=== PATIENT | male | born 1975 | race Caucasian/White ===

== ENCOUNTER → 2017-03-16 12:29 | Outpatient (CLI) | payer MEDICARE ==
[~2017-03-16 12:29] MED LIST: ADDERALL 20 MG20 M1 PO; AMBIEN10 MG PO; AMITRIPTYLINE H50 MG PO; BUPROPION XL300 MG PO; CHANTIX 1 MG TAB1 MG PO; ENDOCET 10-3251 TAB PO; HYDROCODONE-APA1 TAB PO; PARAFON FORTE500 MG PO; PROTONIX40 MG PO; RELAFEN500 MG PO; XANAX2 MG PO; ZESTRIL40 MG PO
[2017-04-02 12:22] VITALS: BMI 31.7
== END | disposition home or self-care (01) ==
LOC: D.RAD 12:29
DX: M25.512 Pain in left shoulder (principal)

== ENCOUNTER 2017-04-02 10:22 | Day surgery (SDC) | payer MEDICARE ==
[~2017-04-02] VITALS: Ht 185.4 cm; Wt 108.9 kg
[2017-04-02 11:58] LABS: HEMATOCRIT 46.7 % (42.0-54.0); MCH 30.2 pg (26.0-34.0); MCHC 34.3 g/dL (31.0-37.0); MCV 88.1 fL (80.0-100.0); MEAN PLATELET VOLUME 9.5 fL (7.4-10.4); RBC 5.3 10x6/uL (4.20-6.10); RDW 13.5 % (11.5-14.5); WBC 8.2 10x3/uL (4.8-10.8)
[2017-04-02 12:04] LABS: CALC OSMOLALITY 278 mosm/kg (275-300); CALCIUM 9.4 mg/dL (8.5-10.1); CARBON DIOXIDE 26.6 mmol/L (21.0-32.0); CHLORIDE - SERUM 104 mmol/L (98-107); CREATININE - SERUM 0.9 mg/dL (0.6-1.3); GLUCOSE 112 mg/dL (74-106); POTASSIUM - SERUM 4.2 mmol/L (3.5-5.1); SODIUM 140 mmol/L (136-145); UREA NITROGEN 10 mg/dL (7-18); eGFR NON AFRICAN AMERICAN > 90 mL/min (90-120)
[2017-04-02] MEDS ORDERED: BUPROPION XL300 MG PO (12:12)
[2017-04-02] MEDS ORDERED: AMBIEN10 MG PO (12:12)
[2017-04-02] MEDS ORDERED: PARAFON FORTE500 MG PO (12:12)
[2017-04-02] MEDS ORDERED: CHANTIX 1 MG TAB1 MG PO (12:12)
[2017-04-02] MEDS ORDERED: AMITRIPTYLINE H50 MG PO (12:13)
[2017-04-02] MEDS ORDERED: XANAX2 MG PO (12:13)
[2017-04-02] MEDS ORDERED: ENDOCET 10-3251 TAB PO (12:13)
[2017-04-02] MEDS ORDERED: ADDERALL 20 MG20 M1 PO (12:14)
[2017-04-02] MEDS ORDERED: ZESTRIL40 MG PO (12:14)
[2017-04-02] MEDS ORDERED: RELAFEN500 MG PO (12:14)
[2017-04-02] MEDS ORDERED: PROTONIX40 MG PO (12:15)
[2017-04-02 12:22] VITALS: BP 103/85; Ht 185.4 cm; Wt 108.9 kg
[2017-04-02] MEDS ORDERED: HYDROCODONE-APA1 TAB PO (14:07)
--- NOTE | 2017-04-02 16:43 | NUR ---
1515 IV DC WITH CATHER TIP INTACT
--- NOTE | 2017-04-05 08:42 | OP ---
PATIENT NAME: GLORIA LOERA MEDICAL RECORD: [id number] :71 LOCATION:[facility] ADMISSION DATE: SURGEON: BOBBI MASTERS MD DATE OF OPERATION: 04/02/2017 PREOPERATIVE DIAGNOSIS: SLAP lesion of the left shoulder with recurrent impingement syndrome. POSTOPERATIVE DIAGNOSIS: SLAP lesion of the left shoulder with recurrent impingement syndrome with rotator cuff tear. PROCEDURES: 1. Arthroscopic SLAP repair. 2. Arthroscopic rotator cuff repair. 3. Arthroscopic subacromial decompression with acromioplasty. 4. Arthroscopic distal clavicle excision. SURGEON: Bobbi Masters MD ANESTHESIA: General. INTRAOPERATIVE COMPLICATIONS: None. SUMMARY OF PATHOLOGIC FINDINGS: Consistent with the preoperative MRI, the patient had a labral tear from 10 o'clock to 2 o'clock position that had from the superior aspect of the glenoid. Furthermore, the patient had a downward sloping acromion left after the previous surgery causing some impingement and rotator cuff tearing on the anterior aspect of the supraspinatus tendinous footprint as well as downward osteophytes from the acromioclavicular joint. OPERATIVE SUMMARY IN DETAIL: After obtaining the appropriate preoperative orthopedic surgery consents as well as anesthetic consultation, evaluation and clearance, the patient was brought to the operating room and placed on table in supine position. After general laryngeal mask was administered, the patient was placed in a right lateral decubitus position. All pressure points were well padded to include down leg peroneal pad as well as axillary roll. The patient was held firmly to the operating table using the vacuum pack suction system. Left upper extremity and shoulder were prepped and draped in a routine sterile fashion. The arm was held in the Arth[employer] traction boom at 30 degrees of forward flexion, 30 degrees of abduction with 10 pounds of traction laterally. Arthroscopy was established in the glenohumeral joint from a posterior portal. Anterior portal was established in the anterior safe interval. Diagnostic arthroscopy did reveal the patient to have the labral tear. Accessory tertiary portal of [place] was created and then the superior aspect of the glenoid was decorticated as was the anterior part for reapproximation of the labrum and 2 labral anchors were used, one at the 1 o'clock position and one at the 10 o'clock position, 2.9 labral anchors were used with labral tape. The lasso shuttle relay was used to pass the labral tape and good anchorage was achieved at these 2 positions. At this point, attention was turned to the small rotator cuff tear. A small transrotator cuff portal was created to debride the rotator cuff tearing on the articular side. Attention was then turned to the subacromial space. While in the subacromial space, all residual soft tissue was taken from the undersurface of the acromion using a polyp surface tissue ablation system along with releasing the coracoacromial ligament. A 5-0 barrel OPERATIVE REPORT [id number] GLORIA LOERA bur was used to perform acromioplasty at the level of acromioclavicular joint and then a separate arthroscopic portal, distal clavicle was excised for 1 cm. Lastly, attention was returned to the rotator cuff tear, #2 FiberTape from [employer] was then placed in an inverted mattress style fashion, and anchored laterally with a 4.75 SwiveLock from [employer]. Having completed this, arthroscopy portals were closed in routine interrupted fashion. Sterile dressings were applied. The patient was awakened and taken to the recovery room in stable condition. All final needle and sponge counts were correct. TRANSINT:[id number] Voice Confirmation ID: [id number] DOCUMENT ID: [id number] SONAM ARRIETA, BOBBI ONTIVEROS at 0842 CC: [id number] DICTATION DATE: 04/02/17 1414 CLIENT PARTNER: 04/02/17 1651 [facility] 04/02/17 [facility] [address] [place] [address]
== END 2017-04-02 16:00 | disposition home or self-care (01) ==
LOC: D.OPS 10:22 → D.PAN 14:45 → D.OPS 16:00
PROVIDERS: Anesthesiology
DX: S43.432A Superior glenoid labrum lesion of left shoulder, initial encounter (principal); M75.42 Impingement syndrome of left shoulder; M75.112 Incomplete rotator cuff tear or rupture of left shoulder, not specified as traumatic; Z01.812 Encounter for preprocedural laboratory examination

== ENCOUNTER → 2017-07-30 13:45 | Outpatient (CLI) | payer MEDICARE ==
[2017-04-02 12:22] VITALS: BMI 31.7
[~2017-07-30 13:45] MED LIST changes: -BUPROPION XL300 MG PO; +COZAAR50 MG PO; +NEURONTIN 300300 MG PO; +PHENERGAN25 M1 PO; +ROBAXIN500 MG PO; +VITAMIN D250000 UNIT PO; +WELLBUTRIN XL150 M1 PO
== END | disposition home or self-care (01) ==
LOC: D.RAD 13:45
DX: M25.511 Pain in right shoulder (principal)

== ENCOUNTER 2017-08-27 06:05 | Day surgery (SDC) | payer MEDICARE ==
[2017-08-26 12:51] LABS: HEMATOCRIT 40.1 % (42.0-54.0); HEMOGLOBIN 13.5 g/dL (13.5-17.5); MCH 30.8 pg (26.0-34.0); MCHC 33.7 g/dL (31.0-37.0); MCV 91.3 fL (80.0-100.0); MEAN PLATELET VOLUME 9.1 fL (7.4-10.4); RBC 4.39 10x6/uL (4.20-6.10); RDW 13.4 % (11.5-14.5); WBC 7.3 10x3/uL (4.8-10.8)
[~2017-08-27] VITALS: Ht 185.4 cm; Wt 117.9 kg
--- NOTE | ~2017-08-27 | OP ---
PATIENT NAME: GLORIA LOERA MEDICAL RECORD: [id number] :71 LOCATION:[facility] ADMISSION DATE: SURGEON: SONAM ARRIETA, BOBBI ONTIVEROS DATE OF OPERATION: 08/27/2017 PREOPERATIVE DIAGNOSES: SLAP lesion of the right shoulder with impingement syndrome and acromioclavicular arthritis. POSTOPERATIVE DIAGNOSES: SLAP lesion of the right shoulder with impingement syndrome and acromioclavicular arthritis. PROCEDURE: 1. Arthroscopic SLAP repair of the right shoulder that is repair of glenoid labral detachment. 2. Arthroscopic distal clavicle excision done through separate incision -- 1 cm under direct arthroscopic visualization. 3. Arthroscopic subacromial decompression with acromioplasty and bursectomy. SURGEON: Bobbi Masters MD ANESTHESIA: General. INTRAOPERATIVE COMPLICATIONS: None. SUMMARY OF PATHOLOGIC FINDINGS: Consistent with the preoperative MRI, the patient had an anterior labral tear to the bicipital labral junction requiring anchorage anteriorly. 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 OPERATIVE SUMMARY IN DETAIL: After obtaining the appropriate preoperative orthopedic surgery consent as well as anesthetic consultation, evaluation and clearance, the patient was brought to the operating room and placed on the operating table in supine position. After adequate general laryngeal mask airway was administered, the patient was placed in a left lateral decubitus position, all pressure points were well padded to include down leg peroneal pad as well as axillary roll. The patient was held firmly to the operating table using the vacuum pack suction system. Right upper extremity and shoulder were then prepped and draped in routine sterile fashion. The arm was held in the Arthrex traction boom at 30 degrees of forward flexion, 30 degrees of abduction, 10 pounds of traction laterally. Arthroscopy was established to the glenohumeral joint from the posterior portal. Anterior portal was established in the anterior safe interval. Diagnostic arthroscopy did reveal the above findings. Attention was turned to debridement of the anterior superior aspect of the glenoid for reattachment of the labrum. Drill holes for the 2.9 PushLocks from [employer] were created and then labral tape was passed in double suture down and then affixed to the glenoid using 2.9 SwiveLocks with good reapproximation with 2 suture anchors, one at the 3 o'clock position and one at the 1 o'clock position. Having completed this, attention was turned to the subacromial space. While in the subacromial space, an [place] tissue ablation system was utilized to denude the undersurface of the acromion of all soft tissue elements and release the coracoacromial ligament. A 5-0 barrel bur was used to perform acromioplasty at the level of acromioclavicular joint. Then, through a separate anterior portal, arthroscopic distal clavicle excision was completed. Having completed this, arthroscopy portals were closed in routine OPERATIVE REPORT [id number] GLORIA LOERA interrupted fashion using 4-0 Prolene. Sterile dressings were applied. The patient was awakened and taken to recovery room in stable condition. All final needle and sponge counts were correct. TRANSINT:[id number] Voice Confirmation ID: [id number] DOCUMENT ID: [id number] SONAM ARRIETA, BOBBI ONTIVEROS at 1225 CC: [id number] DICTATION DATE: 08/27/17 0937 TELEPHONIC CASE MANAGER: 08/27/17 1050 [facility] 08/27/17 [facility] [address] [place] [address]
[2017-08-27 06:40] VITALS: BP 128/90; Ht 185.4 cm; Wt 117.9 kg
[2017-08-27] MEDS ORDERED: HYDROCODONE-APA1 TAB PO (09:29)
== END 2017-08-27 12:03 | disposition home or self-care (01) ==
LOC: D.OPS 06:05 → D.PAN 09:45 → D.OPS 12:03 → D.PAN 12:05 → D.OPS 12:05 → D.PAN 12:15 → D.OPS 12:15
PROVIDERS: Anesthesiology
DX: S43.431A Superior glenoid labrum lesion of right shoulder, initial encounter (principal); M75.41 Impingement syndrome of right shoulder; M19.011 Primary osteoarthritis, right shoulder; I10 Essential (primary) hypertension; Z01.812 Encounter for preprocedural laboratory examination